=== PATIENT | female | born 2000 | race Caucasian/White ===

== ENCOUNTER → 2024-12-18 11:14 | Outpatient (BNVA) | payer MEDICAID, SELFPAY | PROVIDERS: Visit Provider Physician Assistant Surgical ==

== ENCOUNTER 2025-01-01 08:21 | Outpatient (AMB) | payer MEDICAID, SELFPAY ==
--- OUTSIDE RECORDS SUMMARY | 2025-01-01 08:36 | XMS_ITS | Continuity of Care Document ---
Author Organization [facility] Address [address] [place] [address] [address] [place] [address] Phone Care Team Providers Care Screenplay Writer Name Role Phone Israel JUNIOR, ROSIE, CHANNING, Raoul Unavailable U navailable Procedures Procedure Date 18-30 mmHg Thigh length gradient conner caleb stocking Offic Cons New/estab Mod-hi 60- CT & [place] Duplex Scan-extrem Veins; Comp- CT & [place] Advance Directives Directive Yes / No Effective Date File Name No Information Encounters Encounter Description Practice Location Reason(s) For Visit Diagnoses Date Provider Providers Copied on Encounter [facility], [address] [place] [address] Dr Schulz 1000[address]Alexei [place], [id number], [place] tel:[phone] CVR - [facility] Chronic venous hypertension (idiopathic) with other complications of bilateral lower extremity 4 Israel JUNIOR, ROSIE, CHANNING Silveira. [address] [facility] [address], [place], [place], [id number] , [place]. tel:[phone] Referring Provider: Cooper Ernst, [address] [place] [address], [place], [address]. tel:[phone] Offic Cons New/estab Mod-hi 60- CT & [place] [facility], [address] [place] [address] Dr Schulz 1000[address] 1000Alexei [place], [id number], [place] tel:[phone] [facility] Chronic venous hypertension (idiopathic) with other complications of bilateral lower extremityRestl ess legs syndromePrurit us, unspecifiedCra mp and spasmLocalized edema 4 Israel JUNIOR RVT, CHANNING Silveira. [address] [address], [place], [place], [id number] , [place]. tel:[phone] Referring Provider: Cooper Ernst[address], [address]. tel:[phone] [facility], [address] [facility] [address], [place], [id number], [place] tel:[phone] [facility] Chronic venous hypertension (idiopathic) with other complications of bilateral lower extremity 4 Israel JUNIOR RVT, CHANNING Silveira. [address] [place] [address], [place], [place], [id number] , [place]. tel:[phone] Referring Provider: Cooper Ernst, [facility] [place], [address]. tel:[phone] Family History Family Member Type Diagnosis Age At Onset No Information Payers Payer name Insurance type Covered alliance party ID Authoriza ticooper(s) [facility] Medicaid MC [id number] Social History Type Description Quantity Date Captured Comments Sex Female Smoking Status No Information Chief Complaint And Reason For Visit No Information Reason For Referral Reason For Referral No Information Plan Of Treatment Date Type Action Status Goal Diet education completed Referral Ordered: Weight management: Referral to physician timeframe: 3 Months (related to Body mass index (BMI) 31.0-31.9, adult) ordered History Of Present Illness Encounter Date Complaint History Of Prese nt Illness No Information Functional Status Date Functional Assessmen t No Information Instructions Date Instruction Additional Infor mation Pre and post instruc tions reviewed and provided Related to Chronic venous hypertension (idiopathic) with other complications of bilateral lower extremity Patient education booklet given Related to Chronic venous hypertension (idiopathic) with other complications of bilateral lower extremity Lifestyle education Related to B rosemary mass index (BMI) 31.0-31.9, adult Giving Encouragement to exercise Related to Body mass index (BMI) 31.0-31.9, adult Diet education Related to Body mass index (BMI) 31.0-31.9, adult Assessments Type Assessment Date No Information Patient Care Teams Name Effective Dates (start - stop) Status Members No Information
--- NOTE | 2025-01-01 12:11 | MHC.OFFVISWM ---
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 41.7: Details: Start time: 12.01pm, End time: 12.46pm ?I spent 40 minutes speaking with the patient on the phone plus an additional 5 minutes reviewing and updating records for a total of 45 minutes HPI Comments Details: Previous weight loss efforts: Metformin Wakes up: 7am, Sleeps: 11pm Breakfast: 8am (eggs, cheese, bread) Lunch: 1pm (sandwiches, meat) Dinner: 8pm (Tacos, pasta, rice and beans) Snacks: 11am (donut, cookies, cake), 5pm (banana, berries) Exercise: has a walking pad Beverages: Coffee (2 cups/d with milk and sugar), tea: occasionally, soda: diet Coke, juice: (orange juice x3-4/wk), ETOH: none PFSH Medical History (Updated 01/01/25 @ 12:15 by Sanjay Alvarez MD) Depression Bipolar 1 disorder Morbid obesity Family History (Updated 12/18/24 @ 11:25 by Fanny Berry CMA) Maternal Grandmother Diabetes Father Diabetes Social History (Updated 12/18/24 @ 11:24 by Fanny Berry CMA) Household Members Other:: Cousin Housing: Apartment Alcohol intake: never Patient Tobacco Use Status: Never used Tobacco e-Cigarette/Vaping Use: Never Used Telehealth Telehealth Telehealth Platform: Telephone Location of provider rendering services: practice address Location of patient: address on file Patient Identification confirmed using: Name, : Yes Telehealth method: voice only Patient verbally consented to treatment: Yes Patient verbally consented to billing insurance company: Yes Patient informed of any privacy concerns related to visit: Yes Minutes spent on Phone/Video with Pt.: 45 Assessment & Plan Assessment & Plan (1) Morbid obesity: Code(s): E66.01 - Morbid (severe) obesity due to excess calories Category: Medical Plan: 1.? Plan for lap sleeve gastrectomy. If diaphragmatic or ventral hernias are present at time of surgery, these will be repaired laparoscopically as well. I emphasized the importance of close follow-up, adherence to instructions and good communication. The surgery does not replace the need to change your lifestlyle which is the cause of the obesity problem. The surgery provides the motivation to try again to change your lifestyle, it reduces the appetite and make the transition to a better lifestyle easier and doubles the amount of weight you would lose compared to doing the lifestyle change without the surgery. You will need to be on a liquid diet with protein shakes for 2 weeks before surgery to maximize weight loss and boost your nutritional status to recover better from surgery and also for the first two weeks after surgery to let the stomach heal before we introduce other foods. After the first 2 weeks we will introduce protein bars and soft foods like scrambled eggs, cottage cheese and yogurt and after the 6th week will introduce meat, fish and cooked vegetables in small amounts. Over time you should be able to eat everything in small amounts. Side effects like nausea, vomiting, heartburn or abdominal pain are not common in the practice unless you are not following in the practice. This operation requires lifetime commitment to following in our practice and communication with me. You will much less weight and experience side effects if you don?t communicate or not following in the practice. Complications are rare and in our practice is about 1/10 of the national average. However, you can develop bleeding that may require transfusion (hasn?t happened for year in the practice), you may from complications (we did not have any deaths in the practice) and infections. Infections are usually a result of breakdown in communication or not understanding or following directions correctly. They are difficult to treat, they can happen during the first 6 weeks, they may require to be in the hospital for weeks or even months, not being able to eat by mouth and you may have drains and surgeries to try and correct the issue. Other risks and complications include possible conversion to an open procedure, leaks, small bowel obstruction, blood clots, cardiac, or pulmonary complications, as dedicated intermodal truck driver complications such as ulcers, insufficient weight loss and vitamin deficiencies. 2.? Nutritional counseling. Start with 2 premade PREMIER protein shakes (buy at [employer], [employer], [employer], [employer]) (mix 4oz of Premier shake with 4oz low fat unsweetened almond milk each) at 8am-10am and 11am-1pm, one protein bar (Fit Crunch protein bars, buy at [employer] or [employer]) at 2pm-4pm dinner at 5pm (8 forks of protein and 8 forks of salad/vegetables) and one more protein bar after dinner at 7pm-9pm. If hungry, you could do another half Fit Crunch protein bar at 10pm-11pm. So you do 2 protein shakes, 2 to 2.5 protein bars and one meal per day. Meal to include lean meat (beef, fish, pork, turkey, chicken), or armenian yogurt, or egg whites, or beans with a salad with olive oil and fruits (berries, pears, apples, kiwi). Avoid salt, breads, potatoes, rice, pasta, desserts. 3. Each shake would be drunk slowly, like coffee in a period of 2 hours. 4. Cut each bar in 4 pieces and eat each piece in 30min ?to make each bar last 2 hours. 5. I emphasized the importance of measuring accurately the food portion and measure it when serving the food in plate 6. The meal portions include 8 full-size forks of meat and 8 full-size forks of salad. You always eat the meat portion but you can replace up to 4 forks for salad/vegetables with rice, potatoes or pasta, or a fruit ?if you like. The less you do it the better weight loss will be. 7. One full-size fork is what it can be scooped on the fork without falling aside and not what can be bit with the fork. Use regular forks like those you find in a typical restaurant. 8.? Please buy the body composition scale we discussed and send me weight measurements as soon as possible and then once a week. Always include your diet and exercise plan. 9. Start the walking pad daily. Goal is to burn 2000 calories per week on exercise, which means either 300 calories daily. 10.?It is important of avoiding and for at least 18 months postoperatively and has been discussed at the infosession. 11. Goal is to lose at least 1.5-2lbs per week 12. Goal to lose 10% of your weight before surgery, which is about 25lbs. Ultimate weight goal: 225lbs before surgery 13. Please follow the diet plan exactly without any change. If you don't like something about the plan or you feel hungry you need to communicate with me so I can help you revise the plan. You should not change the plan yourself 14. To be scheduled for EGD to assess the stomach's anatomy. The possibility of biopsies was discussed. Patient needs to avoid use of NSAIDs and aspirin for 1 week prior to EGD. You must be on liquids only the day before your endoscopy. Risks of perforation and bleeding was discussed with the patient. This will be an outpatient procedure with IV sedation. Orders: Orders Insulin Today E66.01 - Morbid (severe) obesity due to excess calories H Pylori Breath Test Today E66.01 - Morbid (severe) obesity due to excess calories Complete Blood Count Auto Diff Today E66.01 - Morbid (severe) obesity due to excess calories Lipid Panel Today E66.01 - Morbid (severe) obesity due to excess calories Comprehensive Met. Panel Today E66.01 - Morbid (severe) obesity due to excess calories Zinc Today E66.01 - Morbid (severe) obesity due to excess calories C Reactive Protein Today E66.01 - Morbid (severe) obesity due to excess calories Vitamin B1 Today E66.01 - Morbid (severe) obesity due to excess calories XR chest 2V Today E66.01 - Morbid (severe) obesity due to excess calories ECG 12 lead EKG Today E66.01 - Morbid (severe) obesity due to excess calories FL upper GI w air Today E66.01 - Morbid (severe) obesity due to excess calories Hemoglobin A1c Today E66.01 - Morbid (severe) obesity due to excess calories IRON PROFILE Today E66.01 - Morbid (severe) obesity due to excess calories Vitamin B12 and Folate Today E66.01 - Morbid (severe) obesity due to excess calories Vitamin A Today E66.01 - Morbid (severe) obesity due to excess calories TSH reflex Free T4 Today E66.01 - Morbid (severe) obesity due to excess calories Ferritin Today E66.01 - Morbid (severe) obesity due to excess calories Vitamin D 25-OH Total Today E66.01 - Morbid (severe) obesity due to excess calories US abdomen comp w elastography Today E66.01 - Morbid (severe) obesity due to excess calories Referrals Behavioral Health Referral E66.01 - Morbid (severe) obesity due to excess calories Nutrition/Dietitian Referral E66.01 - Morbid (severe) obesity due to excess calories
[2025-01-01 12:20] VITALS: BMI 41.7
== END 2025-01-01 12:47 | disposition home or self-care (01) ==
LOC: HO.HBS 08:21
PROVIDERS: PCP Internal Medicine; Visit Provider Surgery
DX: E66.01 Morbid (severe) obesity due to excess calories (principal); E66.813 Obesity, class 3; Z68.41 Body mass index [BMI] 40.0-44.9, adult
CPT/HCPCS: 98010

== ENCOUNTER 2025-01-25 08:09 | Outpatient (AMB) | payer OTHER, SELFPAY ==
--- NOTE | 2025-01-25 08:05 | MHC.WMTHER ---
Intake Intake Visit Reasons: VIDEO BH Intake Allergies Penicillins Allergy (Severe, Verified 01/01/25 12:11) Anaphylaxis [facility] Medical History (Updated 01/01/25 @ 12:15 by Sanjay Alvarez MD) Depression Bipolar 1 disorder Morbid obesity Family History (Updated 12/18/24 @ 11:25 by Fanny Berry [facility]) Maternal Grandmother Diabetes Father Diabetes Social History (Updated 12/18/24 @ 11:24 by Fanny Berry CMA) Household Members Other:: Cousin Housing: Apartment Alcohol intake: never Patient Tobacco Use Status: Never used Tobacco e-Cigarette/Vaping Use: Never Used Behavioral Health Assessment Weight Management Therapy Therapy Notes Details PT is a 24 years old Female, who presents for an initial visit to start BH assessment as part of surgical weight loss program. Presenting Concerns Referral Source WMP-Provider. Initially referred by her brother who had weight loss surgery. Reason for referral Completion of behavioral health assessment as part of process for weight-loss surgery. Precipitating Event Obesity. Living Situation Current Living Situation Rent At risk of losing current housing? No Comments PT lives with a cousin and her 2 cats. Food/Weight/Diet Expectations of change PT started the program at 250 lbs and the initial goal to lose 10% of her weight before surgery, which is about 25 lbs. Ultimate weight goal: 225 lbs before surgery. Weight as of 01/20/2025 was 246Lbs. Patient wants to become an active person, as she lives a sedentary lifestyle, and improve her health. She would like to lose 100 lbs. PT is implementing the following: Current meal plan: 2 shakes, 2 bars, and 1 meal. ( Learning process ) Exercise plan: Yes, 200 calories per day. Has a walking pad. Scale: yes Communication with Provider: yes, on Wednesdays. History/Relationship with food At times she overindulges Large portions. lunch is her biggest meal of the day. And for dinner was easy meals, mostly pasta/rice and a protein. PT reports she is an emotional eater, binges on sweets once in a while (example: instead of 1 donut would have 3). She would use food to compensate after a great or bad day. The majority of the time, the family or social activities she participates in involve. Example of meals before starting the program: Breakfast: @7am - eggs, bread, holly. AM snack: something sweet. A cake/cookie/donut and a coffee. Lunch: Soups, protein/veggies PM Snacks: cheese, fruits Dinner: Pasta with chicken, Tacos (3), chicken and rice, Rice/beans/pork (if she goes to her mom's for dinner). Night Snack: Cereal with/ milk, ice cream. Drinks/Liquids: 2 coffees per day (with sugar and milk). Soda: 2-3 cans of Diet Coke per day. Juice: 4 cups per day. Water: 30Oz (Ji Cup, 1 at day). History/Relationship with weight PT reports she was obese as a child. Before her diagnosis of Bipolar 1 year ago, she had put on about 50Lbs, after increased hunger as a side effect of meds. Both sides of her family have a history of obesity, 3 of her siblings are obese, and her mom and brother had weight-loss surgery. In the last 10 years, the patient's Lowest weight was 160Lbs (during the pandemic) and the highest 250Lbs (current). History/Relationship with dieting Cut out sweets Self-diets Walks. Social History Family history and relationship Pt is single. No children. Parents are alive, they're and she has 4 siblings, 2 of them also struggle with obesity. Her father and 2 of her siblings live in [place], and her mother and a brother live near her. Her sister is in [place]. PT reports she has a healthy family dynamics and they're close. 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 Developmental history and status None reported. As an adult has been diagnosed with Anxiety and Bipolar disorder. 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 Rastafari/Spirituality None. Cultural/Ethnic information PT was born in [place]. Been in [place] 11 years ago. PT is bilingual. Legal Involvement and History Current or historical involvement with the legal system? None reported. Education Highest grade completed Bachelors Degree Preferred learning style Auditory Currently enrolled in educational program? No Interested in further educational program? No Educational Interests/Skills Bachelor's in Finance. Worked in the field for a couple years. 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 No Meaningful activities Watch TV, Play video games, Reading. Financial Situation Describe current financial situation Comfortable Financial assistance? None Service Service? No Mental Health and Addiction Treatment Comments Alcohol: Social. 1 drink (beer) Cigarettes/Tobacco: Cannabis/Edibles: Psychiatric history PT goes to [facility] in [place]. She sees Dr. Manley for medication management and sees ISMAEL Fitzgerald. Diagnosed with Bipolar 2. Currently takes: - Bupropion 250 mg - Minkler 450mg - Mirtazapine 15mg - Paliperidone 9mg. Questionnaires PHQ-9 Over the last 2 weeks, how often have you been bothered by any of the following problems? 1. Little interest or pleasure in doing things: several days 2. Feeling down, depressed, or hopeless: several days 3. Trouble falling or staying asleep, or sleeping too much: more than half the days 4. Feeling tired or having little energy: more than half the days 5. Poor appetite or overeating: nearly every day 6. Feeling bad about yourself - or that you are a failure or have let yourself or your family down: more than half the days 7. Trouble concentrating on things, such as reading the newspaper or watching television: nearly every day 8. Moving or speaking so slowly that other people could have noticed. Or the opposite - being so fidgety or restless that you have been moving around a lot more than usual: more than half the days 9. Thoughts that you would be better off or of hurting yourself in some way: not at all Total score: 16 Depression Screening Interpretation: Positive (From new PT pack scanned on 01/11/25) Depression Screening Done: Yes Source: Developed by Drs. Raoul Dai, Azalea Bajwa, Yang Barboza and colleagues, with an educational mireille from [employer]. Assessment & Plan Assessment & Plan (1) Bipolar 1 disorder: Code(s): F31.9 - Bipolar disorder, unspecified (2) Anxiety disorder: Code(s): F41.9 - Anxiety disorder, unspecified (3) Pre-bariatric surgery psychological evaluation: Code(s): Z71.89 - Other specified counseling Plan The patient has not yet been cleared, as the assessment remains incomplete. A follow-up appointment is scheduled in two weeks to continue the evaluation. At that time, a new PHQ-9 will be administered and the BES will be reviewed to assist in clinical decision-making. Next bina: 02/10/2025 at 12pm, Telehealth. Telehealth Telehealth Telehealth Platform: Gimado Location of provider rendering services: other (Home office. [place], [place]) Location of patient: address on file Patient Identification confirmed using: Name, : Yes Telehealth method: video Patient verbally consented to treatment: Yes Patient verbally consented to billing insurance company: Yes Patient informed of any privacy concerns related to visit: Yes Minutes spent on Phone/Video with Pt.: 60 Coding Level of Care Code New Pt Tele Psy Diag Milly (26251) Patient Type New Diagnoses Bipolar 1 disorder F31.9 Anxiety disorder F41.9 Pre-bariatric surgery psychological evaluation Z71.89 Time Spent (min) 60
--- OUTSIDE RECORDS SUMMARY | 2025-01-25 08:11 | XMS_ITS | Continuity of Care Document ---
Author Organization [facility] Address [address] [place] [address] [address] [place] [address] Phone Care Team Providers Care Glass Driller Name Role Phone Israel JUNIOR, ROSIE, CHANNING, [...] Providers Copied on Encounter [facility], [address] [place] [address] Dr Schulz 1000[address] 1000Alexei [place], [id number], [place] tel:[phone] CVR - [facility] Chronic venous hypertension (idiopathic) with other complications of bilateral lower extremity 4 Israel JUNIOR, ROSIE, CHANNING Silveira. [address] [facility] [address], [place], [place], [id number] , [place]. tel:[phone] Referring Provider: Cooper Ernst, [address] [place] [address], [place], [address]. tel:[phone] Offic Cons New/estab Mod-hi 60- [place] & [place] [facility], [address] [place] [address] Dr Schulz 1000[address] 1000Alexei [place], [id number], [place] tel:[phone] [facility] Chronic venous hypertension (idiopathic) with other complications of bilateral lower extremityRestl ess legs syndromePrurit us, unspecifiedCra mp and spasmLocalized edema 4 Israel JUNIOR RVT, CHANNING Silveira. [address] [facility] [address], [place], [place], [id number] , [place]. tel:[phone] Referring Provider: Cooper Ernst[address], [address]. tel:[phone] [facility], [address] [facility] [address], [place], [id number], [place] tel:[phone] [facility] venous hypertension (idiopathic) with other complications of bilateral lower extremity 4 Israel JUNIOR RVT, CHANNING Silveira. [address] [address], [place], [place], [id number] , [place]. tel:[phone] Referring Provider: Cooper Ernst, [facility] [place], [address]. tel:[phone] Family History Family Member Type Diagnosis Age At Onset No Information Payers Payer name Insurance type Covered democrat ID Dagoberto fontanez(s) [employer] [facility] Medicaid MC [id number] Social History Type Description Quantity Date Captured [...] Information Instructions Date Instruction Additional Infor mation Diet education Related to Body mass index (BMI) 31.0-31.9, adult Giving Encouragement to exercise Related to Body mass index (BMI) 31.0-31.9, adult Lifestyle education Related to B rosemary mass index (BMI) 31.0-31.9, adult Patient education booklet given Related to Chronic venous hypertension (idiopathic) with other complications of bilateral lower extremity Pre and post instruc tions reviewed and provided Related to Chronic venous hypertension (idiopathic) with other complications of bilateral lower extremity Assessments Type Assessment Date No Information Patient Care Teams Name Effective Dates (start - stop) Status Members No Information
== END 2025-01-25 09:00 | disposition home or self-care (01) ==
LOC: HO.HBST 08:09
PROVIDERS: PCP Internal Medicine; Visit Provider Counselor Mental Health
DX: F31.9 Bipolar disorder, unspecified (principal); F41.9 Anxiety disorder, unspecified; Z71.89 Other specified counseling
CPT/HCPCS: 90791

== ENCOUNTER → 2025-01-25 08:09 | Outpatient (BNVA) | payer OTHER, MEDICAID, SELFPAY | PROVIDERS: PCP Internal Medicine; Visit Provider Counselor Mental Health ==

== ENCOUNTER 2025-01-28 10:41 | Outpatient (REF) | payer MEDICAID, SELFPAY ==
--- NOTE | ~2025-01-28 | XR_ITS ---
EXAMINATION: XR CHEST CLINICAL INFORMATION: E66.01 - Morbid (severe) obesity due to excess calories COMPARISON: None available. TECHNIQUE: 2 views of the chest were obtained. FINDINGS: The cardiac, hilar, and mediastinal contours are normal. The lungs are clear bilaterally. There is no pneumothorax or pleural effusion. There is no focal osseous or soft tissue abnormality. XR/XR chest 2V IMPRESSION: Normal chest. Electronically signed by: Adam Rodriguez MD 01/28/2025 11:38 AM EDT
[2025-01-28 11:17] LABS: MANUAL DIFF FLAG NO
--- NOTE | 2025-01-28 11:21 | ECG_ITS ---
Test Reason : E66.1 Blood Pressure : */* mmHG Vent. Rate : 81 BPM Atrial Rate : 81 BPM P-R Int : 170 ms QRS Dur : 90 ms QT Int : 396 ms P-R-T Axes : 38 51 35 degrees QTcB Int : 460 ms Normal sinus rhythm Nonspecific T wave abnormality Prolonged QT Abnormal ECG No previous ECGs available Referred By: Sanjay Alvarez Electronically Signed By: DAVID BASURTO MD
[2025-01-28 11:50] LABS: Basophils Percent Auto 0.4 % (0-2); Eosinophils Absolute Auto 0.2 X10*3/uL (0.0-0.4); Hematocrit 39.4 % (37.0-47.0); Hemoglobin 13.1 g/dl (12.0-16.0); Imm Gran Abs Auto 0.02 X10*3/uL (0.00-0.03); Imm Gran Pct Auto 0.3 % (0.0-0.4); Lymphocytes Absolute Auto 1.8 X10*3/uL (1.2-4.9); Lymphocytes Percent Auto 25.4 % (20-40); Mean Corpuscular HGB Conc 33.2 g/dl (31.0-35.0); Mean Corpuscular Hemoglobin 29.8 pg (27.0-33.0); Mean Corpuscular Volume 89.5 fL (80.0-98.0); Mean Platelet Volume 10.4 fL (9.4-12.3); Monocytes Absolute Auto 0.4 X10*3/uL (0.1-1.2); Monocytes Percent Auto 5.3 % (2-11); Neutrophils Absolute Auto 4.6 x10*3/uL (2.0-8.3); Neutrophils Percent Auto 65.6 % (45-73); Platelet Count 264 X10*3/uL (160-400); Red Cell Distribution Width 13.5 % (11.0-16.0); White Blood Count 6.9 X10*3/uL (4.8-10.8)
--- OUTSIDE RECORDS SUMMARY | 2025-01-28 11:50 | XMS_ITS | Continuity of Care Document ---
Author Organization [facility] Address [address] [place] [address] [address] [place] [address] Phone Care Team Providers Care Educational Guidance Counselor Name Role Phone Israel JUNIOR, ROSIE, CHANNIGN, Raoul Unavailable U navailable Procedures Procedure Date 18-30 mmHg Thigh length gradient conner caleb stocking Offic Cons New/estab Mod-hi 60- CT & [place] Duplex Scan-extrem Veins; Comp- CT & [place] Advance Directives Directive Yes / No Effective Date File Name No Information Encounters Encounter Description Practice Location Reason(s) For Visit Diagnoses Date Provider Providers Copied on Encounter [facility], [address] [place] [address] Dr Schulz 1000[address]Alex[place], [id number], [place] tel:[phone] CVR - [facility] Chronic venous hypertension (idiopathic) with other complications of bilateral lower extremity 4 Israel JUNIOR, ROSIE, CHANNING Silveira. [address] [facility] [address], [place], [place], [id number] , [place]. tel:[phone] Referring Provider: Cooper Ernst, [address] [place] [address], [place], [address]. tel:[phone] Offic Cons New/estab Mod-hi 60- CT & [place] [facility], [address] [place] [address] Dr Schulz 1000[address]Alexei [place], [id number], [place] tel:[phone] [facility] Chronic venous hypertension (idiopathic) with other complications of bilateral lower extremityRestl ess legs syndromePrurit us, unspecifiedCra mp and spasmLocalized edema 4 Israel JUNIOR RVT, CHANNING Silveira. [address] [facility], [facility] [address], [place], [place], [id number] , [place]. tel:[phone] Referring Provider: Cooper Ernst[address], [address]. tel:[phone] [facility], [address] [facility] [address], [place], [id number], [place] tel:[phone] [facility] ([facility]opathic) with other complications of bilateral lower extremity 4 Israel JUNIOR RVT, CHANNING Silveira. [address] [address], [place], [place], [id number] , [place]. tel:[phone] Referring Provider: Cooper Ernst, [facility] [place], [address]. tel:[phone] Family History Family Member Type Diagnosis Age At Onset No Information Payers Payer name Insurance type Covered green party ID Dagoberto fontanez(s) [employer] [facility] Medicaid MC [id number] Social History Type Description Quantity Date Captured [...]
[2025-01-28 12:02] LABS: Estimated Average Glucose 111 mg/dL; Hemoglobin A1C 127.4981 umol/L; Hemoglobin A1c % 5.5 % (<6.0); Total Hemoglobin (HGBA1C) 3492.4877 umol/L
[2025-01-28 12:24] LABS: Alanine Aminotransferase 14 U/L (0-31); Albumin Level 4.5 g/dL (3.5-5.0); Alkaline Phosphatase 126 U/L (39-117); Anion Gap 15 (12-20); Aspartate Amino Transferase 17 U/L (5-31); Bilirubin Total 0.3 mg/dL (0.0-1.0); Blood Urea Nitrogen 11 mg/dL (9-16); C Reactive Protein 2.12 mg/dL (< or = 0.50); Calcium 10.2 mg/dL (8.4-10.2); Carbon Dioxide 23 mmol/L (22-29); Chloride 107 mmol/L (96-108); Cholesterol 177 mg/dL (<200); Estimated Glomerular Filt Rate > 60; Glucose Random 101 mg/dL (60-115); HDL Cholesterol 48 mg/dL (>40); Iron 57 mcg/dL (30-160); LDL Cholesterol Calculated 109 mg/dL (<100); Percent Iron Saturation 19 % (15-50); Potassium 3.9 mmol/L (3.3-5.1); Sodium 141 mmol/L (135-145); Total Iron Binding Capacity 302 mcg/dL (228-428); Total Protein 8.4 g/dL (6.5-8.0); Triglycerides 100 mg/dL (<150); Unsaturated Iron Binding 245 ug/dL
[2025-01-28 12:25] LABS: Ferritin 46 ng/mL (10-122); TSH reflex Free T4 4.81 uIU/mL (0.32-4.0)
[2025-01-28 12:33] LABS: Folate 13.2 ng/mL (> or = 4.0); Vitamin B12 501 pg/mL (200-900)
[2025-01-28 12:55] LABS: Insulin 15 uU/mL (2-29)
[2025-01-28 12:57] LABS: Free T4 (Free Thyroxine) 1.04 ng/dL (0.71-1.85)
[2025-02-01 08:54] LABS: Zinc 75 mcg/dL (60-130)
[2025-02-01 17:37] LABS: Vitamin A 44 mcg/dL (38-98)
[2025-02-04 05:54] LABS: Vitamin B1 12 nmol/L (8-30)
== END 2025-01-28 10:42 | disposition home or self-care (01) ==
LOC: HO.XRAY 10:41
PROVIDERS: Visit Provider Surgery
DX: E66.01 Morbid (severe) obesity due to excess calories (principal)
CPT/HCPCS: 36415; 71046; 80053; 80061; 82306; 82607; 82728; 82746; 83036; 83525; 83540; 84425; 84439; 84443; 84590; 84630; 85025; 86140; 93005

== ENCOUNTER → 2025-01-28 11:21 | Outpatient (BNV) | payer MEDICAID, SELFPAY | PROVIDERS: Visit Provider Internal Medicine Cardiovascular Disease | DX: R94.31 Abnormal electrocardiogram [ECG] [EKG] (principal); E66.1 Drug-induced obesity | CPT/HCPCS: 93010 ==

== ENCOUNTER → 2025-01-28 11:29 | Outpatient (BNV) | payer MEDICAID, SELFPAY | PROVIDERS: Visit Provider Radiology Diagnostic Radiology | DX: E66.01 Morbid (severe) obesity due to excess calories (principal) | CPT/HCPCS: 71046 ==

== ENCOUNTER 2025-02-10 12:09 | Outpatient (AMB) | payer OTHER, SELFPAY ==
--- NOTE | 2025-02-10 12:00 | A.OFFWM_ITS ---
Intake Intake Visit Reasons: VIDEO Intake Part 2 Allergies Penicillins Allergy (Severe, Verified 01/01/25 12:11) Anaphylaxis [facility] Medical History (Updated 02/03/25 @ 22:50 by Sanjay Alvarez MD) Depression Bipolar 1 disorder Morbid obesity Family History (Updated 12/18/24 @ 11:25 by Fanny Berry [facility]) Maternal Grandmother Diabetes Father Diabetes Social History (Updated 12/18/24 @ 11:24 by Fanny Berry CMA) Household Members Other:: Cousin Housing: Apartment Alcohol intake: never Patient Tobacco Use Status: Never used Tobacco e-Cigarette/Vaping Use: Never Used Behavioral Health Assessment Weight Management Therapy Therapy Notes Details The patient is a 24-year-old female presenting for her second visit to continue the behavioral health assessment for the surgical weight loss program. She was introduced to the program by her brother, who previously had bariatric surgery. Her goals include becoming more active, reducing her sedentary lifestyle, and improving her overall health. She reports a target weight loss of approximately 100 pounds. She carries a diagnosis of Bipolar II disorder and receives ongoing care at [facility], where she sees Dr. Manley for medication management and Caitie Gloria [facility], for counseling. Her current medications include Bupropion, Quogue, Mirtazapine, and Paliperidone. She attends counseling twice a month and follows up on medications every three months. In May 2024, she was voluntarily hospitalized for suicidal ideation during a depressive episode following yao; her medications were adjusted at that time. She denies any history of suicide attempts, self-harm, or harm to others. Her PHQ-9 score indicates no current symptoms of depression. However, her BES score was elevated, and she disclosed a history of emotional and binge eating. She also reported a recent weight gain due to increased stress over the past two weeks, during which she struggled to follow the meal plan consistently. Presenting Concerns Referral Source WMP-Provider. Initially referred by her brother who had weight loss surgery. Reason for referral Completion of behavioral health assessment as part of process for weight-loss surgery. Precipitating Event Obesity. Living Situation Current Living Situation Rent At risk of losing current housing? No Comments PT lives with a cousin and her 2 cats. Food/Weight/Diet Expectations of change PT started the program at 250 lbs and the initial goal was to lose 10% of her weight before surgery, which is about 25 lbs. Ultimate weight goal: 225 lbs before surgery. Weight as of 01/20/2025 was 246 lbs. Weight as of 02/03/2025 was 248 lbs Patient wants to become an active person, as she lives a sedentary lifestyle, and improve her health. She would like to lose 100 lbs. PT is implementing the following: Current meal plan: 2 shakes, 2 bars, and 1 meal. ( Learning process ) Exercise plan: Yes, 200 calories per day. Has a walking pad. Scale: yes Communication with Provider: yes, on Wednesdays. History/Relationship with food At times she overindulges Large portions. lunch is her biggest meal of the day. And for dinner was easy meals, mostly pasta/rice and a protein. PT reports she is an emotional eater, binges on sweets once in a while (example: instead of 1 donut would have 3). She would use food to compensate after a great or bad day. The majority of the time, the family or social activities she participates in involve. Example of meals before starting the program: Breakfast: @7am - eggs, bread, holly. AM snack: something sweet. A cake/cookie/donut and a coffee. Lunch: Soups, protein/veggies PM Snacks: cheese, fruits Dinner: Pasta with chicken, Tacos (3), chicken and rice, Rice/beans/pork (if she goes to her mom's for dinner). Night Snack: Cereal with/ milk, ice cream. Drinks/Liquids: 2 coffees per day (with sugar and milk). Soda: 2-3 cans of Diet Coke per day. Juice: 4 cups per day. Water: 30Oz (Ji Cup, 1 at day). History/Relationship with weight PT reports she was obese as a child. Before her diagnosis of Bipolar 1 year ago, she had put on about 50Lbs, after increased hunger as a side effect of meds. Both sides of her family have a history of obesity, 3 of her siblings are obese, and her mom and brother had weight-loss surgery. In the last 10 years, the patient's Lowest weight was 160Lbs (during the pandemic) and the highest 250Lbs (current). History/Relationship with dieting Cut out sweets Self-diets Walks. Social History Family history and relationship Pt is single. No children. Parents are alive, they're and she has 4 siblings, 2 of them also struggle with obesity. Her father and 2 of her siblings live in [place], and her mother and a brother live near her. Her sister is in [place]. PT reports she has a healthy family dynamics and they're close. Parental/Familial addiction psychiatrist obligations None. Developmental history and status None reported. As an adult has been diagnosed with Anxiety and Bipolar disorder. 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 Congregation/Spirituality None. Cultural/Ethnic information PT was born in [place]. Been in [place] 11 years ago. PT is bilingual. Legal Involvement and History Current or historical involvement with the legal system? None reported. Education Highest grade completed Bachelors Degree Preferred learning style Auditory Currently enrolled in educational program? No Interested in further educational program? 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 PT started a new job in . Employment Employment Status [employer] Wants help to find employment? No Meaningful activities Watch TV, Play video games, Reading. Financial Situation Describe current financial situation Comfortable Financial assistance? None Service Service? No Mental Health and Addiction Treatment Comments Alcohol: Social. 1 drink (beer) Cigarettes/Tobacco: Cannabis/Edibles: Psychiatric history PT goes to [facility] in [place]. She sees Dr. Manley for medication management and sees Caitie Gloria PERINATAL TECHNICIAN. Diagnosed with Bipolar 2. Currently takes: - Bupropion 250 mg - Quogue 450mg - Mirtazapine 15mg - Paliperidone 9mg. PT attends counseling 2x a month and is prescribed every 3 months. PT was hospitalized voluntarily in May 2024. She had SI, was coming down from a manic episode, and was extremely depressed. Her meds were adjusted after that. PT denies ever having a SA, self-harming, or other-harming. Medical and Physical Health Summary Additional Medical History not covered in history None Sexual History concerns None reported. Physical exam in the last year? No Pain Screening Current pain? No Pain in the last few months? No Medications Is the patient compliant with medications? Yes Does the patient have Almaguer Guardian in place? Not applicable Does the patient use complimentary health approaches? No Trauma/Abuse History History of trauma? No Questionnaires PHQ-9 Over the last 2 weeks, how often have you been bothered by any of the following problems? 1. Little interest or pleasure in doing things: not at all 2. Feeling down, depressed, or hopeless: not at all 3. Trouble falling or staying asleep, or sleeping too much: not at all 4. Feeling tired or having little energy: not at all 5. Poor appetite or overeating: several days (Was under stress. Indulged on s weets and ate out. ) 6. Feeling bad about yourself - or that you are a failure or have let yourself or your family down: not at all 7. Trouble concentrating on things, such as reading the newspaper or watching television: not at all 8. Moving or speaking so slowly that other people could have noticed. Or the opposite - being so fidgety or restless that you have been moving around a lot more than usual: not at all 9. Thoughts that you would be better off or of hurting yourself in some way: not at all Total score: 1 Depression Screening Interpretation: Negative Depression Screening Done: Yes 76911 - PHQ-9 Billing: Yes Source: Developed by Drs. Raoul Dai, Azalea Bajwa, Yang Barboza and colleagues, with an educational mireille from [email or web address]. Binge Eating Scale Group 1 A. I don't feel self-conscious about my wt. or body size when I'm with others. B. I feel concerned about how I look to others, but it normally does not make me fell disappointed with myself C. I do get self-conscious about my appearance and wt. which makes me feel disappointed in myself. D. I feel very self-conscious about my wt. and frequently I feel intense shame and disgust for myself. I try to avoid social contacts because of my self-consciousness. Response Group 1: C Group 2 A. I don't have any difficulty eating slowly in the proper manner. B. Although I seem to gobble down foods, I don't end up feeling stuffed because of eating to much. C. At times, I tend to eat quickly and then, I feel uncomfortably full after wards. D. I have the habit of bolting down my food, without really chewing it. When this happens I usually feel uncomfortably stuffed because I've eaten to much. Response Group 2: D Group 3 A. I feel capable to control my eating urges when I want to. B. I feel like I have failed to control my eating more than the average person. C. I feel utterly helpless when it comes to feeling in control of my eating urges. D. Because I feel so helpless about controlling my eating I have become very desperate about trying to get control. Response Group 3: C Group 4 A. I don't have the habit of eating when I'm bored. B. I sometimes eat when I'm bored, but often I'm able to get busy and get my mind off food. C. I have a regular habit of eating when I'm bored, but occasionally, I can use some other activity to get my mind off eating. D. I have a strong habit of eating when I'm bored. Nothing seems to help me breath the habit. Response Group 4: D Group 5 A. I'm usually physically hungry when I eat something. B. Occasionally, I eat something on impulse even though I really am not hungry. C. I have the regular habit of eating foods, that I might not really enjoy, to satisfy a hungry feeling even though physically, I don't need the food. D. Although I'm not physically hungry, I get a hungry feeling in my mouth that only seems to be satisfied when I eat a food, like sandwich, that fills my mouth. Sometimes, when I eat the food to satisfy my mouth hunger, I then spit the food out so I won't gain weight. Response Group 5: C Group 6 A. I don't feel any guilt or self-hate after I overeat. B. After I overeat, occasionally I feel guilt or self-hate. C. Almost all the time I experience strong guilt or self-hate after I overeat. Response Group 6: C Group 7 A. I don't lose total control of my eating when dieting even after periods when I overeat. B. Sometimes when I eat a forbidden food on a diet, I feel like I blew it and eat even more. C. Frequently, I have the habit of saying to myself, I've blown it now, why not go all the way, when I overeat on a diet. When that happens I eat more. D. I have a regular habit of starting a strict diets for myself but I break the diets by going on an eating binge. My life seems to be either a feast or famine. Response Group 7: B Group 8 A. I rarely eat so much food that I feel uncomfortably stuffed afterwards. B. Usually about once a month, I each such a quantity of food, I end up feeling very stuffed. C. I have regular periods during the month when I eat large amounts of food, either at mealtime or at snacks. D. I eat so much food that I regularly feel quite uncomfortable after eating and sometimes a bit nauseous. Response Group 8: C Group 9 A. My level of calorie intake does not go up very high or go down very low on a regular basis. B. Sometimes after I overeat, I will try to reduce my caloric intake to almost nothing to compensate for the excess calories I've eaten. C. I have a regular habit of overeating during the night. It seems that my routine is not to be hungry in the morning but overeat in the evening. D. In my adult years, I have had week-long periods where I practically starve myself. This follows periods when I overeat. It seems I live a life of either feast or famine. Response Group 9: C Group 10 A. I usually am able to stop eating when I want to. I know when enough is enough. B. Every so often, I experience a compulsion to eat which I can't seem to c ontrol. C. Frequently, I experience strong urges to eat which I seem unable to control, but at other times I can control my eating urges. D. I feel incapable of controlling urges to eat. I have a fear of not being able to stop eating voluntarily. Response Group 10: B Group 11 A. I don't have any problem stopping eating when I feel full. B. I usually can stop eating when I feel full but occasionally overeat leaving me feeling uncomfortably stuffed. C. I have a problem stopping eating once I start and usually I feel uncomfortably stuffed after I eat a meal. D. Because I have a problem not being able to stop eating when I want, I sometimes have to induce vomiting to relieve my stuffed feeling. Response Group 11: B Group 12 A. I seem to eat just as much when I'm with others, Family social gatherings as when I'm by myself. B. Sometimes, when I'm with other persons, I don't eat as much as I want to eat because I'm self-conscious about my eating. C. Frequently, I eat only a small amount of food when others are present, because I'm very embarrassed about my eating. D. I feel so ashamed about overeating that I pick times to overeat when I know no one will see me. I feel like a closet eater. Response Group 12: D Group 13 A. I eat three meals a day with only an occasional between meal snack. B. I eat 3 meals a day, but I also normally snack between meals. C. When I am snacking heavily, I get in the habit of skipping regular meals. D. There are regular periods when I seem to be continually eating, with no planned meals. Response Group 13: B Group 14 A. I don't think much about trying to control unwanted eating urges. B. At least some of the time, I feel my thoughts are pre-occupied with trying to control my eating urges. C. I feel that frequently I spend much time thinking about how much I ate or about trying not to eat anymore. D. It seems to me that most of my waking hours are pre-occupied by thoughts about eating or not eating. I feel like I'm constantly struggling not to eat. Response Group 14: A Group 15 A. I don't think about food a great deal. B. I have strong craving for food but they last only for brief periods of time. C. I have days when I can't seem to think about anything else but food. D. Most of my days seem to be pre-occupied with thoughts about food. I feel like I live to eat. Response Group 15: D Group 16 A. I usually know whether or not I'm physically hungry. I take the right portion of food to satisfy me. B. Occasionally, I feel uncertain about knowing whether or not I'm physically hungry. A these times it's hard to know how much food I should take to satisfy me. C. Even though I might know how many calories I should eat, I don't have any idea what is a normal amount of food for me. Response Group 16: C Binge Eating Score: 30 Score less than 17 Minimal Risk Score between 18-26 Moderate Risk Score between 27-46 High Risk Assessment & Plan Assessment & Plan (1) Bipolar 1 disorder: Code(s): F31.9 - Bipolar disorder, unspecified (2) Anxiety disorder: Code(s): F41.9 - Anxiety disorder, unspecified (3) Pre-bariatric surgery psychological evaluation: Code(s): Z71.89 - Other specified counseling Plan The patient is not cleared at this time due to a hospitalization approximately 8 months ago and recent reports of stress-related eating. Focus will remain on habit building and managing stress eating over the next 1?2 sessions to finalize clearance. A new Binge Eating Scale (BES) assessment will be administered to evaluate progress. Following the upcoming appointment, the provider will determine if collateral communication with her current behavioral health providers is warranted. Next appointment: 02/26/2025 at 12:00 PM (Telehealth). Telehealth Telehealth Telehealth Platform: [facility] Location of provider rendering services: other Location of patient: address on file Patient Identification confirmed using: Name, : Yes Telehealth method: video Patient verbally consented to treatment: Yes Patient verbally consented to billing insurance company: Yes Patient informed of any privacy concerns related to visit: Yes Minutes spent on Phone/Video with Pt.: 40 Coding Level of Care Code Established Pt Tele Psytx 45 mins ([id number]) Patient Type Established Diagnoses Bipolar 1 disorder F31.9 Anxiety disorder F41.9 Pre-bariatric surgery psychological evaluation Z71.89 Additional Codes PHQ-9 - 48448 - PHQ-9 Billing: Yes ([id number]) Time Spent (min) 40
--- OUTSIDE RECORDS SUMMARY | 2025-02-10 12:51 | XMS_ITS | Continuity of Care Document ---
Author Organization [facility] Address [address] [place] [address] [address] [place] [address] Phone Care Team Providers Care Senior Strategy Manager Name Role Phone Israel JUNIOR, ROSIE, CHANNING, [...] Providers Copied on Encounter [facility], [address] [place] [address] Dr Schulz 1000[address]Alex[place], [id number], [place] tel:[phone] CVR - [facility] Chronic venous hypertension (idiopathic) with other complications of bilateral lower extremity 4 Israel JUNIOR, ROSIE, CHANNING Silveira. [address] [facility] [address], [place], [place], [id number] , [place]. tel:[phone] Referring Provider: Cooper Ernst, [address] [place] [address], [place], [address]. tel:[phone] Offic Cons New/estab Mod-hi 60- CT & [place] [facility], [address] [place] [address] Dr Schulz 1000[address] 1000Alexei [place], [id number], [place] tel:[phone] [facility] Chronic venous hypertension (idiopathic) with other complications of bilateral lower extremityRestl ess legs syndromePrurit us, unspecifiedCra mp and spasmLocalized edema 4 Israel JUNIOR RVT, CHANNING Silveira. [address] [facility], [facility] [address], [place], [place], [id number] , [place]. tel:[phone] Referring Provider: Cooper Ernst[address], [address]. tel:[phone] [facility], [address] [facility] [address], [place], [id number], [place] tel:[phone] [facility] (idiopathic) with other complications of bilateral lower extremity 4 Isreal JUNIOR RVT, CHANNING Silveira. [address] [address], [place], [place], [id number] , [place]. tel:[phone] Referring Provider: Cooper Ernst, [facility] [place], [address]. tel:[phone] Family History Family Member Type Diagnosis Age At Onset No Information Payers Payer name Insurance type Covered libertarian ID Dagoberto fontanez(s) [employer] Medicaid MC [id number] Social History Type Description Quantity Date Captured [...]
== END 2025-02-10 13:37 | disposition home or self-care (01) ==
LOC: HO.HBST 12:09
PROVIDERS: Visit Provider Counselor Mental Health
DX: F31.9 Bipolar disorder, unspecified (principal); F41.9 Anxiety disorder, unspecified; Z71.89 Other specified counseling
CPT/HCPCS: 90834

== ENCOUNTER 2025-02-24 08:31 | Day surgery (SDC) | payer MEDICAID, SELFPAY ==
[2025-02-22 12:26] VITALS: BMI 41.6
--- NOTE | 2025-02-22 12:34 | P.CONAN_ITS ---
Documented by User: Mulu Davenport NP 02/22/25 12:34 HPI - Anesthesia Eval Consult details Narrative: 24yo F for Upper Endoscopy PMFSH Active Problems Active Problems: All Active Problems Abnormal EKG (Acute) Hypothyroidism (Acute) Depression (Acute) Bipolar 1 disorder (Acute) Morbid obesity (Acute) Past Medical History Medical History Hypothyroid Depression Bipolar 1 disorder Morbid obesity Family History Family History Maternal Grandmother Diabetes Father Diabetes Surgical History Surgical History H/O wisdom tooth extraction Social History Social History Household Members Other:: Cousin Housing: Apartment Alcohol intake: never Patient Tobacco Use Status: Never used Tobacco e-Cigarette/Vaping Use: Never Used Use of substances other than those prescribed or required for medical reasons: No Are you DNR?: No Advance Directives: No Advance Directives Information Provided: Yes : No Poor oral hygiene: No Meds Allergies Allergy/AdvReac Type Severity Reaction Status Date / Time Penicillins Allergy Severe Anaphylaxis Verified 01/01/25 12:11 Home Medications ?Medication ?Instructions ?Recorded ?Confirmed ?Last Taken ?Type bupropion HCl 200 mg tablet,12 hr 250 mg PO BEDTIME 12/18/24 01/01/25 Unknown History sustained-release lithium carbonate 450 mg 450 mg PO BEDTIME 12/18/24 01/01/25 Unknown History tablet,extended release mirtazapine 15 mg tablet 15 mg PO BEDTIME 12/18/24 01/01/25 Unknown History paliperidone 9 mg tablet,extended 9 mg PO DAILY 12/18/24 01/01/25 Unknown History release 24 hr metformin 500 mg tablet 500 mg PO DAILY 01/01/25 01/01/25 Unknown History Exam Height,Weight and Vital Signs: Height 5 ft 5 in Weight 113.398 kg Assessment and Plan Assessment Anesthesia Assessment: Chart Reviewed Documented by User: Karolina Arcos MD 02/24/25 09:18 [facility] Past Medical History Medical History Hypothyroid Depression Bipolar 1 disorder Morbid obesity Family History Family History Maternal Grandmother Diabetes Father Diabetes Surgical History Surgical History H/O wisdom tooth extraction History of Problems with Anesthesia: No Social History Social History Household Members Other:: Cousin Housing: Apartment Alcohol intake: never Patient Tobacco Use Status: Never used Tobacco e-Cigarette/Vaping Use: Never Used Use of substances other than those prescribed or required for medical reasons: No Are you DNR?: No Advance Directives: No Advance Directives Information Provided: Yes : No Poor oral hygiene: No Meds Allergies Allergy/AdvReac Type Severity Reaction Status Date / Time Penicillins Allergy Severe Anaphylaxis Verified 01/01/25 12:11 Home Medications ?Medication ?Instructions ?Recorded ?Confirmed ?Last Taken ?Type bupropion HCl 200 mg tablet,12 hr 250 mg PO BEDTIME 12/18/24 01/01/25 Unknown History sustained-release lithium carbonate 450 mg 450 mg PO BEDTIME 12/18/24 01/01/25 Unknown History tablet,extended release mirtazapine 15 mg tablet 15 mg PO BEDTIME 12/18/24 01/01/25 Unknown History paliperidone 9 mg tablet,extended 9 mg PO DAILY 12/18/24 01/01/25 Unknown History release 24 hr metformin 500 mg tablet 500 mg PO DAILY 01/01/25 01/01/25 Unknown History Exam Airway Mallampati Class: III TM Dist: >3cm Neck ROM: Full Loose/Missing/Broken Teeth: No Heart: RRR Lungs: CTA Assessment and Plan Assessment Anesthesia Assessment: Anesthesia Plan Discussed Final Anesthetic Review History of Problems with Anesthesia: No NPO: Yes ASA Class: III Final Preanesthetic Review: Meds/Allgs Chart Reviewed and Consent Obtained/Revi ewed Patient Risk: Intermediate Procedure Risk: Intermediate Anesthetic Plan Anesthetic Plan: MAC: Disposition: Standard PACU
[2025-02-24 08:57] VITALS: BMI 41.8
[2025-02-24 08:58] LABS: UPreg QC Valid YES; Urine Pregnancy NEGATIVE (NEGATIVE)
[2025-02-24 08:59] VITALS: BP 122/81; PULSE 90; RESP 16; TEMP 36.6; O2SAT 96
[2025-02-24] MEDS: Lactated Ringers 1,000 ML 80 ML IVCONT (09:01)
[2025-02-24 09:06] VITALS: BMI 41.8
--- NOTE | 2025-02-24 09:29 | P.HPSUR_ITS ---
Pre-Procedural Eval Section A - 24 Hr Update-Section A only Date of Service: 02/24/25 The patient is an INPATIENT: No The patient has been examined within 24 hours of the surgical procedure. The History & Physical has been completed within 30 days and I have reviewed it.: Yes Section B - Complete if H&P > 30 days Chief Complaint: Morbid (severe) obesity due to excess calories Relevant Family History (Specify if Yes): No Relevant Social History: None Present Medications: None Medical History: No relevant PMH History of Previous Operations: No relevant previous surgery Allergies: Allergies Allergy/AdvReac Type Severity Reaction Status Date / Time Penicillins Allergy Severe Anaphylaxis Verified 01/01/25 12:11 Review of Systems Sugical H&P ROS: Negative: Constitution, Cardiovascular, Respiratory, Neurologi cassie, Psychiatric, Hem-Onc, Allergic/Immunologic, Gastrointestinal, Genitourinary, Musculoskeletal, Integumentary, Endocrine and Eyes/Ears/Nose/Throat Exam Surgical H&P Exam: Normal: HEENT, Normal: Heart, Normal: Lungs, Normal: Extremities, Normal: Abdomen, Normal: Skin and Normal: Neurological Plan Diagnosis/Plan: Unchanged ( EGD to assess the stomach's anatomy. Risks of bleeding and perforation were discussed with the patient and she is in agreement with the plan.) I have reviewed the history and physical and performed a pertinent physical examination on my patient. No changes have occurred unless specified. Time Spent With Patient Time: Total time managing care of this patient today ____ minutes.
--- NOTE | 2025-02-24 09:31 | PM.OP ---
Brief Operative Note Date of Service: 02/24/25 Pre-op diagnosis: Morbid obesity Post-op diagnosis: same Procedure: PROCEDURE DATE: 02/24/2025 PREOPERATIVE DIAGNOSIS: GERD POSTOPERATIVE DIAGNOSIS: ?Same as above. Normal endoscopy PROCEDURE: [id number] with biopsies Surgeon: Trevin Alvarez M.D.. Ph.D. Pediatric Licensed Practical Nurse: None ? Anesthesia: IV sedation Estimated blood loss: ?Minimal FINDINGS AND PROCEDURE: ? OPERATIVE INDICATIONS: ?The patient is a 24 year old female known to me who is interested in bariatric surgery. Based on this information I recommended an upper endoscopy to evaluate the stomach's anatomy. Risks and complications of the surgery were discussed with the patient in advance particularly the possibility of perforation or bleeding that may require surgical intervention. The patient understood the risks and was in agreement with the plan. ? PROCEDURE: After informed consent was obtained by the patient, the patient was ?transferred to the Operating Room and was placed in the supine position.? After successful induction of IV sedation, a mouth block was inserted and the patient was placed in the left lateral decubitus position. An upper endoscopy was performed next, the oropharynx and esophagus appeared within the normal limits. There was no hiatal hernia. The z-line was smooth. Two biopsies were obtained from the distal esophagus 2-3 cm proximal to the GE junction and two additional biopsies from the GE junction. The stomach was entered and it appeared to be of normal size. There was no gastritis. There was no stricture or ulcer. A biopsy was obtained from the gastric fundus and the antrum. No significant bleeding was noted from any of the biopsy sites. The scope was then advanced into the duodenum which appeared to be normal as well. Retroflexion of the scope confirmed a normal GE junction. At that point the duodenum ?and the stomach were decompressed and the scope was withdrawn from the patient's mouth. The patient extubated and was transferred in stable condition to the Recovery Room for further care. I was present and performed all steps of the procedure. There were no residents to assist with this case. Juan Alvarez M.D., Ph.D. Surgeon: Sanjay Alvarez MD Anesthesia: MAC Was an Pediatric Licensed Practical Nurse used for this Procedure?: No Estimated blood loss (mL): 0 IV fluids (mL): 400 Urine output (mL): 0 (No Marcus to record output) Pathology: other (1) antrum x1, 2) fundus x1, 3) GE junction x2, 4) distal esophagus x2) Condition: stable Disposition: PACU
[2025-02-24 09:45] VITALS: BP 105/55; PULSE 80; RESP 12; TEMP 36.1; O2SAT 97
[2025-02-24 10:00] VITALS: BP 126/88; PULSE 101; RESP 16; TEMP 36.3; O2SAT 98
== END 2025-02-24 10:49 | disposition home or self-care (01) ==
PROVIDERS: Nurse Practitioner; Visit Provider Surgery
PROC: 0DJ08ZZ Inspection of Upper Intestinal Tract, Via Natural or Artificial Opening Endoscopic (ICD-10-PCS; CPT 43235; principal; 2025-02-24 10:10)
DX: E66.01 Morbid (severe) obesity due to excess calories (principal); Z68.41 Body mass index [BMI] 40.0-44.9, adult; E03.9 Hypothyroidism, unspecified; F31.9 Bipolar disorder, unspecified; Z79.1 Long term (current) use of non-steroidal anti-inflammatories (NSAID); Z79.84 Long term (current) use of oral hypoglycemic drugs; Z79.899 Other long term (current) drug therapy; Z88.0 Allergy status to penicillin
CPT/HCPCS: 43239; 81025; 88305; 88313; 88342; J2003; J2704

== ENCOUNTER → 2025-02-24 08:31 | Outpatient (BNV) | payer MEDICAID, SELFPAY | PROVIDERS: Visit Provider Surgery | DX: K21.9 Gastro-esophageal reflux disease without esophagitis (principal) | CPT/HCPCS: 43239 ==